=== PATIENT | male | born 1940 | race Caucasian/White ===

== ENCOUNTER 2016-11-08 09:00 | Emergency (ER) | payer OTHER ==
[~2016-11-08] VITALS: Ht 165.1 cm; Wt 70.3 kg
[~2016-11-08 09:00] MED LIST: ATIVAN0.5 MG PO; ATIVAN2 MG/ML IV; CENTRUM SILVER1 TAB PO; DISULFIRAM250 MG; ENULOSE 2020 GM/30 M PO; FOLIC ACID 1 MG PO; FUROSEMIDE20 M1 PO; HALOBETASOL PRO TOP; OPTIMUM VITAMI100 MG PO; SPIRONOLACTONE25 MG PO; THIAMINE IV; XIFAXAN550 MG PO
--- NOTE | 2016-11-08 09:13 | ED GENERAL ADULT ---
History of Present Illness General Chief Complaint: Altered Mental Status Stated Complaint: CONFUSION PER FAMILY Source: family Exam Limitations: confusion, poor historian Vital Signs & Intake/Output Vital Signs & Intake/Output Vital Signs Date Time Temp Pulse Resp B/P Pulse O2 O2 Flow FiO2 Ox Delivery Rate 11/08 1321 98.6 76 18 128/84 98 Room Air 11/08 1123 98.6 60 20 131/77 96 11/08 0904 98.0 63 16 141/77 97 Room Air Allergies Coded Allergies: NO KNOWN ALLERGIES (06/10/13) Reconcile Medications Cyanocobalamin (Vitamin B-12) 1,000 MCG TABLET 1 TAB PO DAILY SUPPLEMENT ( Reported) Disulfiram (Unknown Strength) TAB (Unknown Dose) UNKNOWN (Reported) Escitalopram Oxalate 5 MG TABLET 1.5 TAB PO DAILY MENTAL HEALTH (Reported) Folic Acid 1 MG TAB 1 TAB PO DAILY FOLIC ACID SUPPLEMENT (Reported) Furosemide 20 MG TABLET 1 TAB PO DAILY WATER PILL (Reported) Halobetasol Propionate 0.05% OIN 1 BILL TOP BID PSORIASIS (Reported) Lactulose (Enulose 20GM/30ML) 20 GM/30 ML UDC 30 ML PO BID LIVER (Reported) Multivitamin and [id number] (Centrum Silver) 1 TAB TAB 1 TAB PO DAILY SUPPLEMENT (Reported) Rifaximin (Xifaxan) 550 MG TAB 1 TAB PO BID LIVER (Reported) Spironolactone 25 MG TABLET 1 TAB PO DAILY HEART (Reported) Tramadol HCl 50 MG TABLET 1 TAB PO BIDP PRN PAIN (Reported) Triage Note: 75 Y/O JUST NOT RIGHT". STATES HE HAS BEEN SLEEPING MORE THAN USUAL OVER THE PAST FEW WEEKS AND HAS NOT BEEN EATING. STATES YESTERDAY HE WAS "MORE AGITATED THAN USUAL" AND CONTINUED TO HAVE DECREASED APPETITE/PO INTAKE. PT DENIES PAIN. DENIES COMPLAINTS BUT STATES HE DOESNT FEEL "WELL". WEARING NECK COLLAR RELATED TO C5 FRACTURE > 1 YEAR AGO - "HE ALWAYS HAS TO WEAR THAT". Triage Nurses Notes Reviewed? yes Onset: Gradual Duration: week(s): Timing: recent history HPI: 11/08/16 12 PM This is a 75-year-old man with a history of end-stage liver disease who is currently on medications for depression and also tramadol for pain. He has had his dosage of the ESCITALOPRAM increased recently, no other new medication changes. He status post TIPS procedure He basically has had ongoing sleepiness and has been getting progressively confused according to his . The onset of the symptoms have been gradual, the duration has been weeks, the severity is significant as her symptoms required her to come to the emergency department for care On physical examination he is oriented 3 with assistance only no focal weakness no abdominal pain or tenderness, heart is regular, lungs are clear Past History Travel History Traveled to [place] past 21 day No Medical History Any Pertinent Medical History? 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 No Review of Systems Review of Systems Constitutional: Denies: fever. EENTM: Denies: visual changes. Respiratory: Denies: short of breath. Cardiovascular: Denies: chest pain. GI: Denies: abdominal pain. Genitourinary: Reports: no symptoms. Musculoskeletal: Reports: no symptoms. Skin: Reports: no symptoms. Neurological/Psychological: Reports: confusion. Hematologic/Endocrine: Reports: no symptoms. Physical Exam Physical Exam General Appearance: alert, awake, anxious, mild distress Head: atraumatic, normal appearance Eyes: Bilateral: normal appearance, PERRL, EOMI. Ears, Nose, Throat: normal pharynx Neck: the patient is in a hard collar for C-spine fracture Respiratory: normal breath sounds, chest non-tender, no respiratory distress Cardiovascular: regular rate/rhythm Peripheral Pulses: 4+ radial (R), 4+ radial (L) Gastrointestinal: soft, non-tender Back: normal range of motion Extremities: normal inspection, normal range of motion Neurologic/Psych: no motor/sensory deficits, awake, alert, disoriented x 3, oriented x3 with assistance, no clonus Skin: intact, normal color, warm/dry Core Measures ACS in differential dx? No CVA/TIA Diagnosis: No Severe Sepsis Present: No Septic Shock Present: No Progress Differential Diagnoses I considered the following diagnoses in my evaluation of the patient: [ Intracranial bleed, adverse drug reaction, stroke, encephalitis, hepatic encephalopathy, sepsis, alcohol intoxication, alcohol withdrawal] Plan of Care: Orders Procedure Date/time Status CULTURE,URINE 11/08 942 Active URINE DRUG SCREEN FOR ER ONLY 11/08 942 Complete URINALYSIS 11/08 942 Complete AMMONIA 11/08 942 Complete ETHANOL 11/08 942 Complete COMPREHENSIVE METABOLIC PANEL 11/08 942 Complete CBC WITHOUT DIFFERENTIAL 11/08 942 Complete Laboratory Tests 11/08/16 1021: Urine Opiates Screen < 100.00, Methadone Screen < 40, Barbiturate Screen < 60, Ur Phencyclidine Scrn < 6.00, Amphetamines Screen < 100, U Benzodiazepines Scrn < 85, Urine Cocaine Screen < 50, Urine Cannabis Screen < 5.00, Urine Color YEL, Urine Clarity CLEAR, Urine pH 6.5, Ur Specific [place] 1.020, Urine Protein NEG, Urine Ketones TRACE H, Urine Nitrite NEG, Urine Bilirubin NEG, Urine Urobilinogen 2.0 H, Ur Leukocyte Esterase NEG, Ur Microscopic EXAM NOT REQUIRED , Urine Hemoglobin NEG, Urine Glucose NEG 11/08/16 1015: Anion Gap 7, Estimated GFR > 60, BUN/Creatinine Ratio 23.3, Glucose 79, Calcium 8.9, Total Bilirubin 2.5 H, AST 50, ALT 46, Alkaline Phosphatase 185 H, Ammonia 31 H, Total Protein 6.2 L, Albumin 3.0 L, Globulin 3.2, Albumin/ Globulin Ratio 0.9 L, CBC w Diff NO MAN DIFF REQ, RBC 3.67 L, MCV 103.6 H, MCH 35.4 H, RDW 14.8 H, MPV 9.2, Gran % 66.7, Lymphocytes % 16.5 L, Monocytes % 9.9 H, Eosinophils % 5.5 H, Basophils % 1.4, Absolute Granulocytes 4.0, Absolute Lymphocytes 1.0 L, Absolute Monocytes 0.6, Absolute Eosinophils 0.3, Absolute Basophils 0.1, PUBS MCHC 34.2, Serum Alcohol < 10.0 Microbiology 11/08 1020 URINE ROUT: Urine Culture - RECD Initial ED EKG: none Departure Departure Disposition: HOME OR SELF CARE Condition: Stable Clinical Impression Primary Impression: Cirrhosis Secondary Impressions: Liver encephalopathy Referrals: LACY PERRY MD (PCP/Family) Departure Forms: Customer Survey General Discharge Information Comments CT of head negative PATIENT: PHILLIP SANTOS PRESENT AGE: 75 PATIENT ACCOUNT NO: [id number] : 41 LOCATION: [facility] ORDERING PHYSICIAN: ALIRIO VIVAS DO SERVICE DATE: 11/08/16 EXAM TYPE: CAT - CT HEAD WO IV CONTRAST EXAMINATION: CT HEAD WITHOUT CONTRAST CLINICAL INFORMATION: Altered mental status. COMPARISON: Head CT, 07/12/2015 TECHNIQUE: Contiguous axial imaging was performed from the skull base to vertex without intravenous administration of contrast. DLP: 843 mGy-cm FINDINGS: There is atherosclerotic calcification of the carotid siphons. No evidence of an acute major vascular territory infarction; the neville-white matter differentiation is maintained. No intracranial hemorrhage, extra-axial fluid collection, focal mass effect or midline shift. There is mild atrophy of cerebral hemispheres associated with symmetric prominence of ventricles, sulci and cisterns. No acute findings within the posterior fossa. The calvarium is intact and the visualized paranasal sinuses, mastoid air cells and middle ear cavities are clear. There have been lens extractions from the globes. 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 IMPRESSION: No acute intracranial pathology compared to 07/12/2015. DICTATED BY: ROLAND JOHNSTON MD DATE/TIME DICTATED:11/08/161026 LAND CLEARER:JET DATE/TIME TRANSCRIBED:11/08/161026 CONFIDENTIAL, DO NOT COPY WITHOUT APPROPRIATE AUTHORIZATION. <Electronically signed in Other Vendor System> SIGNED BY: ROLAND JOHNSTON MD 11/08/16 1036 The patient's labs are essentially unremarkable. I discussed the case with Dr. Myles. He agrees with the plan and follow-up the patient. His Lexapro dose was reduced 5 mg daily. He will follow up with Dr. Myles this week. 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 Santos is been following the patient and agrees with the plan. We will increase his lactulose from 15 mL's twice a day 2:30 mL's twice a day for the next week. He'll continue his X [place], folic acid, furosemide, spironolactone, vitamin B1, Centrum Silver, Lexapro, and tramadol. He will follow-up with Dr. Santos this week and return to the emergency department if worse
[2016-11-08 10:23] LABS: ABSOLUTE BASOPHIL COUNT 0.1 /CUMM (0.0-0.2); ABSOLUTE EOSINOPHIL COUNT 0.3 /CUMM (0.0-0.7); ABSOLUTE MONOCYTE COUNT 0.6 /CUMM (0.10-0.60); BASOPHIL % 1.4 % (0.0-2.0); EOSINOPHIL % 5.5 % (0-5); GRANULOCYTE % 66.7 % (42.2-75.2); MEAN CORPUSCULAR HGB 35.4 PG (27.0-31.0); MEAN CORPUSCULAR HGB CONC 34.2 G/DL (33.0-37.0); MEAN CORPUSCULAR VOLUME 103.6 FL (80.0-94.0); MEAN PLATELET VOLUME 9.2 FL (7.4-10.4); PLATELET COUNT 114 /CUMM (130-400); RBC DISTRIBUTION WIDTH 14.8 % (11.5-14.5); RED BLOOD CELL CT 3.67 /CUMM (4.70-6.10); WHITE BLOOD CELL COUNT 5.9 /CUMM (4.8-10.8)
--- NOTE | 2016-11-08 10:36 | CT SCAN REPORT ---
EXAMINATION: CT HEAD WITHOUT CONTRAST CLINICAL INFORMATION: Altered mental status. COMPARISON: Head CT, 07/12/2015 TECHNIQUE: Contiguous axial imaging was performed from the skull base to vertex without intravenous administration of contrast. DLP: 843 mGy-cm FINDINGS: There is atherosclerotic calcification of the carotid siphons. No evidence of an acute major vascular territory infarction; the neville-white matter differentiation is maintained. No intracranial hemorrhage, extra-axial fluid collection, focal mass effect or midline shift. There is mild atrophy of cerebral hemispheres associated with symmetric prominence of ventricles, sulci and cisterns. No acute findings within the posterior fossa. The calvarium is intact and the visualized paranasal sinuses, mastoid air cells and middle ear cavities are clear. There have been lens extractions from the globes. 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 IMPRESSION: No acute intracranial pathology compared to 07/12/2015.
[2016-11-08] MEDS ORDERED: SPIRONOLACTONE25 M1 PO (10:41)
[2016-11-08] MEDS ORDERED: VITAMIN B-121000 MC3 PO (10:44)
[2016-11-08] MEDS ORDERED: TRAMADOL HCL50 M1 PO (10:44)
[2016-11-08] MEDS ORDERED: ESCITALOPRAM OXA5 MG PO (10:45)
[2016-11-08 13:21] VITALS: BP 128/84
== END 2016-11-08 13:22 ==
LOC: ERH 09:00
PROVIDERS: Emergency Medicine
DX: K74.60 Unspecified cirrhosis of liver (principal); G93.40 Encephalopathy, unspecified; F10.20 Alcohol dependence, uncomplicated
CPT/HCPCS: 80307; 81003; 87086; G0480